=== PATIENT | female | born 1995 | race African-American/Black ===

== ENCOUNTER 2016-05-18 11:26 | Emergency (ER) | payer OTHER ==
[~2016-05-18] VITALS: Ht 157.5 cm; Wt 54.4 kg
[~2016-05-18 11:26] MED LIST: AMOXICILLIN875 MG PO; APAP500; CALICUM 500+D1 EACH; HYDROCODONE-AP1 EAC6 PO; IBUPROFEN 600600 M1; LANOLIN56 GM; NORCO 5-325 TA1 EACH; TUCKS1 EAC1
[2016-05-18 12:53] VITALS: BP 108/68
== END 2016-05-18 12:54 | disposition home or self-care (01) ==
LOC: ER 11:26
DX: B34.9 Viral infection, unspecified (principal); J02.8 Acute pharyngitis due to other specified organisms; J06.9 Acute upper respiratory infection, unspecified; B97.89 Other viral agents as the cause of diseases classified elsewhere